=== PATIENT | male | born 1950 | race Asian ===

== ENCOUNTER 2019-04-18 22:05 | Inpatient (IN) | payer OTHER ==
[2019-04-18 22:10] VITALS: BMI 24.3
--- NOTE | 2019-04-18 22:56 | PDOC ---
Attending Attestation - Resident Resident Name: Brendan Palencia - ED Attending Attestation I have performed the following: I have examined & evaluated the patient, The case was reviewed & discussed with the resident, I agree w/resident's findings & plan - HPI HPI: 04/18/19 22:57 Pt comes with right facial pain and swelling. thinks that he has TMJ, and it is possible. Pt is unable to open his mouth and chew. Pt has no dental pain and no ear pain No throat pain Pt has no fever Pt is on coumadin and so he has been unable to take NSAIDS. Pt has a pmhx of AFIB and mitral valve repair - Physicial Exam PE: 04/18/19 23:34 Afebrile HEENT normal ears, eyes, throat, gums, teeth. Pt is missing some teeth, but no tenderness over teeth. Pt has swelling of the right side of his face, and tenderness over the zygomatic bone and at the shinto (No trauma noted) lungs CTA b Heart [id number] abd soft NT ND no C/C/E - Medical Decision Making 04/19/19 01:15 Pt still in pain. He will be getting his meds now. Labs were sent Pt also needs imaging studies. 04/19/19 01:16 C-reactive protein is 5 x higher than it should be 04/19/19 02:24 Sed rate is normal 04/19/19 03:38 Patient Name: COSMO MIRELES THIS IS A PRELIMINARY REPORT FROM [facility] DATE OF SERVICE: 2019-04-19 01:25:05 IMAGES: [id number] EXAM: FACIAL BONES CT W/O CONTRAST HISTORY: Right facial swelling COMPARISON: None. FINDINGS: The intraorbital contents are intact. Moderate mucosal thickening and small air-fluid levels in the maxillary sinuses led to reflect sinusitis The visualized mastoid air cells are well aerated. There is no fracture. 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 Patient is nearly edentulous. IMPRESSION: Bilateral maxillary sinusitis. 04/19/19 03:39 Pt with facial pain and cannot eat; cant open mouth; TMJ arthritis, but he is on blood thinners and cannot have strong pain meds.
[2019-04-18] MEDS ORDERED: SODIUM CHLORIDE 0.9% 500 ML INFUS.BAG IV ONE (23:32)
[2019-04-18] MEDS ORDERED: morphine CARPU-JECT 2 MG/1 ML DISP.SYRIN IVPUSH ONE (23:32)
[2019-04-18] MEDS ORDERED: AMPICILLIN NA/SULBACTAM NA 1.5 GM in SODIUM CHLORIDE 100 ML IVPB ONE (23:32)
--- NOTE | 2019-04-18 23:51 | PDOC ---
History of Present Illness - General Chief Complaint: Pain Stated Complaint: PAIN Time Seen by Provider: 04/18/19 22:56 - History of Present Illness Initial Comments: 04/18/19 23:50 69 yo M PMH afib on coumadin, rheumatic heart disease w/ mitral regurgitation s/ p repair in 1996, presenting with right facial pain and swelling. Has been present for the past day, leaving him unable to open his mouth or chew. Associated with chills. No dental or ear pain. Tylenol has been ineffective. Never happened before. Past History - Past Medical History Allergies/Adverse Reactions: Allergies Allergy/AdvReac Type Severity Reaction Status Date / Time No Known Allergies Allergy Verified 04/18/19 22:10 Home Medications: Ambulatory Orders Warfarin Sodium [Coumadin] 3 mg PO DAILY 07/26/13 Metoprolol Succinate [Toprol Xl -] 25 mg PO DAILY 04/19/19 Tamsulosin HCl [Flomax] 0.4 mg PO DAILY 04/19/19 Cardiac Disorders: Yes (atrial fibrillation) COPD: No - Surgical History Abdominal Surgery: Yes (HERNIA) Cardiac Surgery: Yes (mitral valve repair) - Psycho Social/Smoking Cessation Hx Smoking History: Never smoked Review of Systems - Review of Systems Comments:: 04/19/19 05:33 GENERAL/CONSTITUTIONAL: denies fever, chills, diaphoresis, generalized weakness , malaise, loss of appetite, weight change HEAD, EYES, EARS, NOSE AND THROAT: endorses difficulty opening his mouth. Denies rhinorrhea, nasal congestion, throat pain, throat swelling, difficulty swallowing, mouth swelling, ear pain, eye pain, visual changes NEUROLOGIC: denies headache, focal weakness or paresthesias, dizziness, unsteady gait, seizure, mental status changes, bladder or bowel incontinence CARDIOVASCULAR: denies chest pain, syncope, palpitations, irregular heart rate, lightheadedness, peripheral edema RESPIRATORY: denies cough, shortness of breath, dyspnea with exertion, orthopnea , wheezing, stridor, hemoptysis GASTROINTESTINAL: denies abdominal pain, abdominal distension, nausea, vomiting , diarrhea, constipation, melena, hematochezia GENITOURINARY: denies dysuria, frequency, urgency, hesitancy, hematuria, flank pain, genital pain MUSCULOSKELETAL: denies myalgia, arthralgia, joint swelling, back pain, neck pain SKIN: denies rash, itching, pallor HEMATOLOGIC/IMMUNOLOGIC: denies easy bleeding, easy bruising, lymphadenopathy, frequent infections ENDOCRINE: denies unexplained weight gain, unexplained weight loss, heat intolerance, cold intolerance PSYCHIATRIC: denies anxiety, depression, suicidal or homicidal ideation, hallucinations. *Physical Exam - Vital Signs Last Vital Signs Temp Pulse Resp BP Pulse Ox 98.0 F 67 18 127/77 100 04/18/19 22:07 04/18/19 22:07 04/18/19 22:07 04/18/19 22:07 04/18/19 22:07 - Physical Exam 04/19/19 05:35 GENERAL: Awake, alert, and fully oriented, in no acute distress. HEAD: Normal with no signs of trauma. EYES: Pupils equal, round and reactive to light, extraocular movements intact, sclera anicteric, conjunctiva clear. No lid lag. EARS, NOSE, THROAT: Ears normal, nares patent, oropharynx clear without exudates. Tenderness and swelling at the R temperomandibular joint. NECK: Normal range of motion, supple without lymphadenopathy, JVD, or masses. LUNGS: Breath sounds equal, clear to auscultation bilaterally. No wheezes, and no crackles. No accessory muscle use. HEART: Regular rate and rhythm, normal S1 and S2 without murmur, rub or gallop. ABDOMEN: Soft, nontender, non-distended, normoactive bowel sounds, negative guarding, negative rebound MUSCULOSKELETAL: Normal range of motion at all joints. No bony deformities or tenderness. No CVA tenderness. UPPER EXTREMITIES: 2+ pulses, warm, well-perfused. No cyanosis. No clubbing. Cap refill <2 seconds. No peripheral edema. LOWER EXTREMITIES: 2+ pulses, warm, well-perfused. No calf tenderness. No peripheral edema. NEUROLOGICAL: Cranial nerves II-XII intact. Normal speech. Normal gait. PSYCHIATRIC: Cooperative. Good eye contact. Appropriate mood and affect. SKIN: Warm, dry, normal turgor, no rashes or lesions noted. ED Treatment Course - LABORATORY CBC & Chemistry Diagram: 04/19/19 00:30 04/19/19 00:30 Medical Decision Making - Medical Decision Making 04/18/19 23:54 Concern for possible parotitis vs TMJ. - Facial CT - CBC, CMP, ESR, CRP - PT/INR - Unasyn - IVF - admit to Dr. Luther 04/19/19 01:18 WBC 10.3, bilirubin 1.8, CRP 1.5 (5X upper limit of normal). 04/19/19 03:36 CT scan with significant arthritis in R TMJ, no signs of parotitis. Discussed with Dr. Luther (PCP), patient admitted. Discharge - Discharge Information Problems reviewed: Yes Clinical Impression/Diagnosis: Arthritis pain Condition: Stable - Follow up/Referral - Patient Discharge Instructions - Post Discharge Activity
[2019-04-19] MEDS ORDERED: MORPHINE SULFATE 2 MG/ML VIAL ONE (00:52)
[2019-04-19 00:54] LABS: BASO % 0.4 % (0-2.0); EOS % 1.9 % (0-4.5); HEMATOCRIT 46.7 % (35.4-49); HEMOGLOBIN 15.8 GM/dL (11.7-16.9); LYMPH % 13.6 % (8-40); MCHC 33.9 g/dl (32.0-35.9); MEAN CELL VOLUME 94.3 fl (80-96); MEAN PLT VOLUME 7.8 fl (7.5-11.1); MONO % 9.6 % (3.8-10.2); NEUT % 74.5 % (42.8-82.8); PLATELET COUNT 153 K/MM3 (134-434); RBC 4.95 M/mm3 (4.00-5.60); RDW 12.8 % (11.9-15.9); WHITE BLOOD COUNT 10.3 K/mm3 (4.0-10.0)
[2019-04-19 01:15] LABS: BILIRUBIN,TOTAL 1.8 mg/dL (0.2-1); CALCIUM 9.2 mg/dL (8.5-10.1); CREATININE 1.3 mg/dL (0.55-1.3); POTASSIUM 4.5 mmol/L (3.5-5.1); TOT PROT 7.4 g/dl (6.4-8.2)
[2019-04-19] MEDS ORDERED: AMPICILLIN NA/SULBACTAM NA 1.5 GM in SODIUM CHLORIDE 100 ML IVPB ONE (11:15)
[2019-04-19] MEDS ORDERED: MORPHINE SULFATE 2 MG/ML VIAL IVPUSH ONE (11:15)
[2019-04-19] MEDS ORDERED: AMPICILLIN NA/SULBACTAM NA 1.5 GM VIAL ONE ×2 (11:44→18:14)
[2019-04-19] MEDS ORDERED: SODIUM CHLORIDE 100 ML IVPB ONE ×2 (11:44→18:14)
--- NOTE | 2019-04-19 15:59 | HP ---
DATE OF ADMISSION: 04/19/2019 This is a 69-year-old male, known to have aortic valve transplant, on Coumadin, came to the emergency room yesterday with complaints of pain, right side of the face, with difficulty opening mouth. In the ER, it was diagnosed that he may have otitis externa or temporomandibular joint infection, and got admitted with IV antibiotics and painkillers. Today at this point, around 3 o'clock, he still has severe pain, has difficulty in opening the mouth. He had a CAT scan in the emergency room, of the facial bones: It says chronic maxillary sinusitis, no other facial abnormality. PHYSICAL EXAMINATION TODAY: Vital Signs: His blood pressure is 120/60, pulse 86, temperature 100.6. HEENT: There is tenderness on the right side of the temporomandibular joint and on the parotid area or so on the right side. Throat is clear. Lungs: Clear. Heart: S1, S2 normal. No S3, S4. Abdomen: Soft. Legs: No edema. Neurological: Grossly normal. LABORATORY DATA: WBC 10.3, hemoglobin 15.8. Chemistry: Sodium 141, potassium 4.5, chloride 108, CO2 29, BUN 22, creatinine 1.3. ESR is 0.9. IMPRESSION: Parotitis, temporomandibul-itis, aortic valve replacement. PLAN: IV fluid, keep n.p.o. for another day, IV antibiotics. Will follow. Will continue his p.o. medications. Trena [id number]
[2019-04-19] MEDS: AMPICILLIN NA/SULBACTAM NA 1.5 GM in SODIUM CHLORIDE 100 ML IVPB SCH (18:16)
[2019-04-19] MEDS: metoPROLOL SUCCINATE 25 MG TAB.SR.24H (FP) PO SCH (18:16)
[2019-04-19] MEDS: WARFARIN NA 3 MG TABLET PO SCH (18:16)
[2019-04-19] MEDS: AMINO ACIDS 4.25%/D5W 1,000 ML IV SCH (18:20)
[2019-04-20] MEDS ORDERED: SODIUM CHLORIDE 100 ML IVPB ONE ×4 (01:51→20:03)
[2019-04-20] MEDS ORDERED: AMPICILLIN NA/SULBACTAM NA 1.5 GM VIAL ONE ×4 (01:51→20:03)
[2019-04-20] MEDS: AMPICILLIN NA/SULBACTAM NA 1.5 GM in SODIUM CHLORIDE 100 ML IVPB SCH ×3 (02:11→17:28)
[2019-04-20] MEDS: AMINO ACIDS 4.25%/D5W 1,000 ML IV SCH ×4 (03:59→20:36)
[2019-04-20 07:25] LABS: HEMATOCRIT 41.8 % (35.4-49); HEMOGLOBIN 14.3 GM/dL (11.7-16.9); MCH 32.2 pg (25.7-33.7); MCHC 34.2 g/dl (32.0-35.9); MEAN PLT VOLUME 8.6 fl (7.5-11.1); PLATELET COUNT 120 K/MM3 (134-434); RBC 4.44 M/mm3 (4.00-5.60); RDW 12.9 % (11.9-15.9); WHITE BLOOD COUNT 10.1 K/mm3 (4.0-10.0)
[2019-04-20 07:51] LABS: ALBUMIN 3.2 g/dl (3.4-5.0); BILIRUBIN,TOTAL 2.5 mg/dL (0.2-1); CALCIUM 8.2 mg/dL (8.5-10.1); CREATININE 1.2 mg/dL (0.55-1.3); POTASSIUM 3.6 mmol/L (3.5-5.1); TOT PROT 6.4 g/dl (6.4-8.2)
[2019-04-20 07:59] LABS: INR 2.08 (0.83-1.09); PROTHROMBIN TIME (PATIENT) 24.7 SEC (9.7-13.0)
[2019-04-20] MEDS: TAMSULOSIN HCL 0.4 MG CAP PO SCH (09:22)
--- NOTE | 2019-04-20 09:38 | PN ---
Progress Note, Physician Chief Complaint: Feels better History of Present Illness: Admitted with fever and swelling Rt parotid area To day says he has perforated Rt ear drum Today fever is better and can open his mouth Last night he spiked fever 102 - Current Medication List Current Medications: Active Medications Amino Acids (Clinimix -) 1,000 mls @ 84 mls/hr IV Q12H [facility] Last Admin: 04/20/19 06:40 Dose: 84 mls/hr Ampicillin Sodium/Sulbactam (Sodium 1.5 gm/ Sodium Chloride) 100 mls @ 200 mls/ hr IVPB Q8H-IV [facility] Last Admin: 04/20/19 09:23 Dose: 200 mls/hr Metoprolol Succinate (Toprol Xl -) 25 mg PO DAILY [facility] Last Admin: 04/19/19 18:16 Dose: 25 mg Tamsulosin HCl (Flomax -) 0.4 mg PO DAILY@0830 [facility] Last Admin: 04/20/19 09:22 Dose: 0.4 mg Warfarin Sodium (Coumadin -) 3 mg PO DAILY@1800 [facility] Last Admin: 04/19/19 18:16 Dose: 3 mg - Objective Vital Signs: Vital Signs Temperature 98.7 F 04/20/19 03:00 Pulse Rate 73 04/20/19 03:00 Respiratory Rate 20 04/20/19 03:00 Blood Pressure 107/59 L 04/20/19 03:00 O2 Sat by Pulse Oximetry (%) 95 04/19/19 22:00 Constitutional: Yes: Calm Eyes: Yes: WNL HENT: Yes: Other (There is tenderness over tempromandibular joint area on Rt) Neck: Yes: WNL Cardiovascular: Yes: WNL Respiratory: Yes: WNL Gastrointestinal: Yes: WNL ...Rectal Exam: Yes: Deferred Genitourinary: Yes: WNL Breast(s): Yes: WNL Musculoskeletal: Yes: WNL Edema: No Neurological: Yes: Alert ...Motor Strength: WNL Labs: CBC, BMP 04/20/19 06:30 04/20/19 06:30 INR, PTT INR 2.08 (0.83-1.09) H 04/20/19 06:30 Assessment/Plan ENT consult Dr Díaz
[2019-04-20] MEDS: metoPROLOL SUCCINATE 25 MG TAB.SR.24H (FP) PO SCH (09:44)
[2019-04-20] MEDS ORDERED: ACETAMINOPHEN WITH CODEINE 300MG/30MG TABLET PO PRN (09:45)
[2019-04-20] MEDS: WARFARIN NA 3 MG TABLET PO SCH (17:28)
[2019-04-21] MEDS: AMPICILLIN NA/SULBACTAM NA 1.5 GM in SODIUM CHLORIDE 100 ML IVPB SCH ×3 (01:56→17:54)
[2019-04-21] MEDS: AMINO ACIDS 4.25%/D5W 1,000 ML IV SCH ×3 (07:41→14:50)
[2019-04-21] MEDS ORDERED: SODIUM CHLORIDE 100 ML IVPB ONE ×2 (09:34→17:48)
[2019-04-21] MEDS ORDERED: AMPICILLIN NA/SULBACTAM NA 1.5 GM VIAL ONE ×2 (09:34→17:48)
[2019-04-21] MEDS: metoPROLOL SUCCINATE 25 MG TAB.SR.24H (FP) PO SCH (09:40)
[2019-04-21] MEDS: TAMSULOSIN HCL 0.4 MG CAP PO SCH (09:40)
--- NOTE | 2019-04-21 09:43 | PN ---
Progress Note, Physician Chief Complaint: Pain Rt ear area persists History of Present Illness: ENT consult pending - Current Medication List Current Medications: Active Medications Acetaminophen/Codeine Phosphate (Tylenol # 3 -) 2 tab PO Q6H PRN PRN Reason: PAIN LEVEL 4 - 6 Amino Acids (Clinimix -) 1,000 mls @ 84 mls/hr IV Q12H [facility] Last Admin: 04/21/19 07:41 Dose: Not Given Ampicillin Sodium/Sulbactam (Sodium 1.5 gm/ Sodium Chloride) 100 mls @ 200 mls/ hr IVPB Q8H-IV [facility] Last Admin: 04/21/19 01:56 Dose: 200 mls/hr Metoprolol Succinate (Toprol Xl -) 25 mg PO DAILY [facility] Last Admin: 04/20/19 09:44 Dose: 25 mg Tamsulosin HCl (Flomax -) 0.4 mg PO DAILY@0830 [facility] Last Admin: 04/20/19 09:22 Dose: 0.4 mg Warfarin Sodium (Coumadin -) 3 mg PO DAILY@1800 [facility] Last Admin: 04/20/19 17:28 Dose: 3 mg - Objective Vital Signs: Vital Signs Temperature 98.1 F 04/21/19 07:16 Pulse Rate 80 04/21/19 07:16 Respiratory Rate 20 04/21/19 07:16 Blood Pressure 142/88 04/21/19 07:16 O2 Sat by Pulse Oximetry (%) 97 04/20/19 22:00 Constitutional: Yes: Calm Eyes: Yes: WNL HENT: Yes: WNL, Other (minimal tenderness present Rt periorbital area) Neck: Yes: WNL Labs: CBC, BMP 04/20/19 06:30 04/20/19 06:30 INR, PTT INR 2.08 (0.83-1.09) H 04/20/19 06:30 Assessment/Plan [id number] unasyn Will call Dr Díaz,ENT
--- NOTE | 2019-04-21 18:44 | CON.ENT ---
Consult Consult Specialty:: ENT Referred by:: DR Luther Reason for Consultation:: Right temporomandibular swelling - History of Present Illness Chief Complaint: right jaw pain History of Present Illness: 69 yo m with 5-6 day hx of right jaw pain, was unable to open mouth, presented to [facility] ER, was only able to use a straw for oral intake has not seen an oral surgeon before since admission improved CT scan shows right ?TMJ abnormality maxillary sinusitis found parotid glands unremarkable - History Source History Provided By: Patient, Family Member, Medical Record Limitations to Obtaining History: No Limitations - Past Medical History Heme/Onc: Yes: Other (anticoagulatoin with coumadin) - Alcohol/Substance Use Hx Alcohol Use: No - Smoking History Smoking history: Never smoked Have you smoked in the past 12 months: No Home Medications - Allergies Allergies/Adverse Reactions: Allergies Allergy/AdvReac Type Severity Reaction Status Date / Time No Known Allergies Allergy Verified 04/18/19 22:10 - Home Medications Home Medications: Ambulatory Orders Warfarin Sodium [Coumadin] 3 mg PO DAILY 07/26/13 Metoprolol Succinate [Toprol Xl -] 25 mg PO DAILY 04/19/19 Tamsulosin HCl [Flomax] 0.4 mg PO DAILY 04/19/19 Physical Exam-ENT Vital Signs: Vital Signs Temperature 98.6 F 04/21/19 10:28 Pulse Rate 105 H 04/21/19 10:28 Respiratory Rate 18 04/21/19 10:28 Blood Pressure 118/91 04/21/19 10:28 O2 Sat by Pulse Oximetry (%) 97 04/20/19 22:00 Head: Yes: WNL Face: Yes: Other (mild swelling right TMJ area with mild tenderness. parotid gland is soft, not indurated, no nodule) Eyes: Yes: WNL Nose: Yes: Other (mild mucosal erythema, no pus or polyp visible on anterior rhinoscopy) Nasal Passage: Yes: WNL Oral/Pharynx: Yes: Other (missing teeth, airway patent, maximum incisor opening ~4 cm, mild deviation with jaw opening) Outer Ear: Yes: WNL Ear Canal: Yes: WNL Neck: Yes: WNL Imaging - Results Cat Scan: Report Reviewed, Image Reviewed Problem List - Problems (1) TMJ tenderness, right Assessment/Plan: pt had significant trismus on admission, could only drink through a straw, unable to open his mouth\ since admission he has had significant improvement, now able to open mouth with decent opening, but right TMJ still painful CT scan shows right mandibular condyle deformity, appears flat compared to the normally shaped rounded left mandibular condyle Recommend: diet as tolerated soft foods warm compresses to right jaw NSAIDS not an option since pt anticoagulated should see Oral surgery for longer term management Code(s): M26.621 - ARTHRALGIA OF RIGHT TEMPOROMANDIBULAR JOINT (2) Maxillary sinusitis Assessment/Plan: maxillary sinusitis found on CT scan Recommend: continue antibiotics, ok to change to PO when ok with medical team nasal saline spray Thank you for consultation , Tommy Díaz MD FACS Code(s): J32.0 - CHRONIC MAXILLARY SINUSITIS
[2019-04-21 19:48] LABS: INR 2.19 (0.83-1.09)
[2019-04-21 20:42] VITALS: TEMP 98.2
[2019-04-21] MEDS: WARFARIN NA 3 MG TABLET PO SCH (21:31)
[2019-04-22] MEDS ORDERED: AMPICILLIN NA/SULBACTAM NA 1.5 GM VIAL ONE ×2 (01:42→09:18)
[2019-04-22] MEDS ORDERED: SODIUM CHLORIDE 100 ML IVPB ONE ×2 (01:42→09:18)
[2019-04-22] MEDS: AMPICILLIN NA/SULBACTAM NA 1.5 GM in SODIUM CHLORIDE 100 ML IVPB SCH ×2 (02:12→09:24)
[2019-04-22] MEDS: AMINO ACIDS 4.25%/D5W 1,000 ML IV SCH (03:10)
[2019-04-22] MEDS ORDERED: ACETAMINOPHEN 325 MG TABLET (FP) PO PRN (03:58)
[2019-04-22 09:24] VITALS: BP 110/76; PULSE 77
[2019-04-22] MEDS: metoPROLOL SUCCINATE 25 MG TAB.SR.24H (FP) PO SCH (09:24)
[2019-04-22] MEDS: TAMSULOSIN HCL 0.4 MG CAP PO SCH (09:24)
--- NOTE | 2019-04-22 09:25 | DS ---
Physical Examination Vital Signs: Vital Signs Temperature 98.2 F 04/21/19 20:35 Pulse Rate 72 04/22/19 05:00 Respiratory Rate 18 04/22/19 05:00 Blood Pressure 110/83 04/22/19 05:00 O2 Sat by Pulse Oximetry (%) 96 04/21/19 22:00 Findings/Remarks: Admitted with Rt temperomandibular joint pain and difficulty in opening mouth Treated with IV antibiotics symtoms relived Evaluated by ENT advised PO antibiotics and pain meds Constitutional: Yes: Calm Eyes: Yes: WNL Neck: Yes: WNL Cardiovascular: Yes: WNL Respiratory: Yes: WNL Gastrointestinal: Yes: WNL Renal/: Yes: WNL Breast(s): Yes: WNL Edema: No Psychiatric: Yes: Alert Labs: CBC, BMP 04/20/19 06:30 04/20/19 06:30 Discharge Summary Problems reviewed: Yes Reason For Visit: SWELLING OF FACE Current Active Problems Arthritis pain (Acute) Maxillary sinusitis (Acute) TMJ tenderness, right (Acute) Condition: Stable - Instructions - Home Medications Comprehensive Discharge Medication List: Ambulatory Orders Warfarin Sodium [Coumadin] 3 mg PO DAILY 07/26/13 Metoprolol Succinate [Toprol Xl -] 25 mg PO DAILY 04/19/19 Tamsulosin HCl [Flomax] 0.4 mg PO DAILY 04/19/19
== END 2019-04-22 10:35 | disposition home or self-care (01) | DRG 159 ==
LOC: JER 22:05 → JERBED 04-19 00:10 → J8W 04-19 09:06
PROVIDERS: ADMIT Internal Medicine; ATTEND Internal Medicine
DX: M26.621 Arthralgia of right temporomandibular joint (principal); J32.0 Chronic maxillary sinusitis; I09.9 Rheumatic heart disease, unspecified; I05.1 Rheumatic mitral insufficiency; I48.91 Unspecified atrial fibrillation
CPT/HCPCS: 36415; 70486-TC; 80053; 84295; 85025; 85027; 85610; 85651; 86140; 99285-25